=== PATIENT | male | born 1940 | race Caucasian/White ===

== ENCOUNTER 2017-03-01 06:24 | Emergency (ER) | payer OTHER, MEDICARE ==
[~2017-03-01] VITALS: Ht 172.7 cm; Wt 104.8 kg
--- NOTE | 2017-03-01 06:30 | NUR ---
PT BIBA FROM HOME C/O FALL WITH SKIN TEAR. ON ARRIVAL PT UNCONTROLLABLY BLEEDING FROM EMS STRETCHER. PT STRAIGHT TO 12 WHERE THIS RN APPLIED PRESSURE WITH ABD PADS TO PTS MID TO UPPER RIGHT SIDE/ MIDDLE OF BACK. PT HAS MULTIPLE LACS (3 SUTURABLE) AND OTHERS SUPERFICIAL TO BACK. PT HAS MULTIPLE SKIN TEARS/ LACS TO RIGHT ARM. AROUND 0600 PT FELL AT HOME INTO A [employer] CABINET WHEN HE LOST HIS BALANCE. 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 DR JACKSON IN FOR SUTURES TO BACK TO CONTROL BLEEDING.
--- NOTE | 2017-03-01 07:11 | NUR ---
THIS RN ESTABLISHED IV ACCESS IN RAC #[id number]. LABS DRAWN AND SENT TO LAB (SST, LARA, BLUE ,LAV, PINK). RESTRICTED EXT BRACELET APPLIED TO PTS LEFT ARM FOR FISTULAS. BP UNOBTAINABLE AT THIS TIME, THIS RN AND PATENT PARALEGAL JULI MARIN. PT IS DIAPHORETIC AND PALE. DR JACKSON CONTINUES TO SUTURES PTS RIGHT ARM NEAR ELBOW FOR LAC.
--- NOTE | 2017-03-01 07:22 | ED MVC/FALL/TRAUMA COMPLAINT ---
See Addendum History of Present Illness General Chief Complaint: Laceration Procedure Stated Complaint: LACERATION TO BACK AFTER FALL ONTO COFFEE TABLE ON Source: patient, EMS Exam Limitations: no limitations Allergies Coded Allergies: No Known Allergies (03/01/17) Reconcile Medications B Complex & C No.20/Folic Acid (Renal Caps Softgel) 1 MG CAPSULE 1 CAP PO QPM VITAMIN SUPPORT (Reported) Fexofenadine HCl (Sheba Allergy) 180 MG TABLET 1 TAB PO DAILY PRN ALLERGIES (Reported) Furosemide 40 MG TABLET 1 TAB PO SuMoWeFrSa WATER PILL (Reported) Losartan Potassium 100 MG TABLET 1 TAB PO DAILY HEART (Reported) Metoprolol Tartrate 25 MG TABLET 1 TAB PO BID HEART (Reported) Sevelamer Carbonate (Renvela) 800 MG TABLET 1 TAB PO TID UNKNOWN (Reported) Simvastatin (Simvastatin*) (Unknown Strength) TABLET (Unknown Dose) PO QPM CHOLESTEROL (Reported) Warfarin Sodium (Coumadin) 4 MG TABLET 1 TAB PO 1700 BLOOD THINNER (Reported) Triage Note: PT BIBA FROM HOME C/O FALL WITH SKIN TEAR. ON ARRIVAL PT UNCONTROLLABLY BLEEDING FROM EMS STRETCHER. PT STRAIGHT TO 12 WHERE THIS RN APPLIED PRESSURE WITH ABD PADS TO PTS MID TO UPPER RIGHT SIDE/ MIDDLE OF BACK. PT HAS MULTIPLE LACS (3 SUTURABLE) AND OTHERS SUPERFICIAL TO BACK. PT HAS MULTIPLE SKIN TEARS/ LACS TO RIGHT ARM. AROUND 0600 PT FELL AT HOME INTO A [employer] CABINET WHEN HE LOST HIS BALANCE. 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 DR JACKSON IN FOR SUTURES TO BACK TO CONTROL BLEEDING. Triage Nurses Notes Reviewed? yes HPI: Patient presents for evaluation of injury sustained status post fall. Patient was going to the bathroom when he fell over backwards onto a glass coffee table. He presents with multiple lacerations of the back. (RENETTA AVENDAÑO,JEFF Chadwick) Vital Signs & Intake/Output Vital Signs & Intake/Output Vital Signs Date Time Temp Pulse Resp B/P B/P Pulse O2 O2 Flow FiO2 Mean Ox Delivery Rate 03/01 1316 97.2 71 15 100/60 95 Room Air Room Air 03/01 1222 82 15 90/60 100 Room Air Room Air 03/01 1145 98.0 72 15 94/60 100 Room Air Room Air 03/01 1114 71 20 95/56 95 Room Air 03/01 1109 68 20 84/54 98 03/01 1006 66 20 112/60 98 Room Air 03/01 0824 97.2 69 20 135/80 99 Room Air 03/01 0736 69 20 109/57 100 Room Air 03/01 0725 70 18 113/55 96 Room Air ED Intake and Output 03/02 0000 03/01 1200 Intake Total Output Total Balance Patient 231 lb Weight Weight Reported by Patient Measurement Method Past History Travel History Traveled to [place] past 21 day No Medical History Any Pertinent Medical History? see below for history Cardiovascular: hypertension, hyperlipidemia Renal: chronic kidney disease Cancer(s): CARCINOMA ON VOCAL CORDS Psychosocial History What is your primary language Japanese Tobacco Use: Quit >30 days ago ETOH Use: occasional use Family History Hx Contributory? No (RENETTA AVENDAÑO,JEFF Chadwick) Surgical History Surgical History: non-contributory (JEFF DAVIES DO) Review of Systems Review of Systems Constitutional: Reports: no symptoms. Eyes: Reports: no symptoms. Ears, Nose, Throat, Mouth: Reports: no symptoms. Respiratory: Reports: no symptoms. Cardiovascular: Reports: no symptoms. Gastrointestinal/Abdominal: Reports: no symptoms. Genitourinary: Reports: no symptoms. Musculoskeletal: Reports: no symptoms. Skin: Reports: see HPI. Neurological/Psychological: Reports: no symptoms. All Other Systems: Reviewed and Negative (RENETTA AVENDAÑO,JEFF Chadwick) Physical Exam Physical Exam General Appearance: SEE BELOW Comments: Gen.: Well-nourished, well-developed, no acute respiratory distress. Head: Normocephalic, atraumatic, nontender. Eyes: Normal inspection bilaterally, andrea, EOMI Ears: Normal inspection bilaterally Nose: Normal inspection Throat/mouth : Moist mucosa Neck: Supple, full range of motion, no goiter, nontender Heart: Regular rate and rhythm, no murmurs rubs or gallops Lungs: Clear to auscultation bilaterally with normal air entry Chest: Nontender Back: Normal range of motion, nontender Abdomen: Soft, nontender, nondistended, normal bowel sounds Pelvis: Stable and nontender Extremities: Normal range of motion grossly, no tenderness, no cyanosis clubbing or edema Neurologic: Cranial nerves grossly intact, speech is clear Skin: Diaphoresis, multiple superficial and full-thickness skin lacerations of the back and right upper extremity Psychiatric: Calm, cooperative, no apparent delusions or hallucinations Diagram Body: 1) V SHAPED FULL THICKNESS LAC 2) FULL THICKNESS LACERATION 3) FULL THICKNESS LACERATION (RENETTA AVENDAÑO,JEFF Chadwick) Core Measures ACS in differential dx? No Severe Sepsis Present: No Septic Shock Present: No (JEFF DAVIES DO) Progress Differential Diagnosis: CHEST TRAUMA, ABDOMINAL TRAUMA, HEMORRHAGE Comments: 03/01/2017 7:29:24 AM patient's blood pressure and color has improved. I have sutured 3 lacerations on the patient's back and upper arm, the superior back wound for hemostasis and to facilitate imaging. Portable chest x-ray is being done to rule out pneumothorax or free air under the diaphragm. I have a call out to nephrology regarding an IV contrast CAT scan of the chest abdomen and pelvis given my concern for potential penetrating trauma. 03/01/2017 8:05:34 AM patient remains hemodynamically stable. H&H is difficult to interpret as the most recent prior studies from the year 1999. Suspect he has a chronic anemia but I will try to confirm this with his primary care physician. I have reviewed the patient's chest x-ray and see no indication of pneumothorax, hemothorax or free air under the diaphragm. I attempted to perform a FAST exam at the bedside but ultrasound unit is not functional. I have paged radiology. I am also awaiting callback from the chopper gun operator. 03/01/17 9:30am pt case d/w radiologist who agrees with limited abd us to r/o hemoperitoneum. awaiting call from chopper gun operator re: dialysis after contrast ct scan. pt signed out to dr davies. (RENETTA AVENDAÑO,JEFF Chadwick) Plan of Care: Current Medications Sig/Nichol Start time Last Medication Dose Stop Time Status Admin Sevelamer Carbonate 800 MG TID 03/01 1600 AC (Renvela) Departure Departure Condition: Stable Referrals: JESUS AVENDAÑO,JAMAR Chester (PCP/Family) Departure Forms: Customer Survey General Discharge Information (RENETTA AVENDAÑO,JEFF Chadwick) Departure Disposition: STILL A PATIENT Clinical Impression Primary Impression: Gait instability Secondary Impressions: Coagulopathy, Fall, Multiple lacerations Comments 03/01/17 10:44 AM The patient was seen and evaluated by the chopper gun operator in the Emergency Department. We are in agreement that noncontrast CT scan of the chest abdomen and pelvis should be adequate to identify evidence of bleeding looking for hematoma. Admission Note Spoke With: KATIE CELESTIN MD Documentation of Exam: Documentation of any treatments & extenuating circumstances including Concerns Regarding Discharge (functional status, medication knowledge or non-compliance, living conditions, etc.) that warrant an admission rather than observation: [The patient needs admission for serial hemoglobin and hematocrits, renal consultation, case management consultation for evaluation of his home situation in that he had a substantial fall with significant trauma] (JEFF DAVIES DO) Procedures Laceration/Wound Repair Laceration/Wound Repair: Wound Location: back Wound's Depth, Shape: irregular, linear, subcutaneous Wound Length (cm): 17 Wound Explored: clean Irrigated w/ Saline (ccs): 200 Betadine Prep? Yes Anesthesia: 2% lidocaine Volume Anesthetic (ccs): 8 Wound Debrided: minimal Wound Repaired With: sutures, Dermabond Suture Size/Type: 4:0, nylon Number of Sutures: 30 Layer Closure? Yes (superior wound of back) Deep Layer Suture Size/Type: 4:0 Number Deep Layer Sutures: 2 Sterile Dressing Applied: Yes (JEFF JACKSON MD) Critical Care Note Critical Care Note Critical Care Time: 30-74 min (JEFF JACKSON MD) Referrals: JAMAR LEE MD (PCP/Family) Departure Forms: Customer Survey General Discharge Information (JEFF JACKSON MD) Departure Disposition: STILL A PATIENT Clinical Impression Primary Impression: Gait instability Secondary Impressions: Coagulopathy, Fall, Multiple lacerations Comments 03/01/17 10:44 AM The patient was seen and evaluated by the chopper gun operator in the Emergency Department. We are in agreement that noncontrast CT scan of the chest abdomen and pelvis should be adequate to identify evidence of bleeding looking for hematoma. Admission Note Spoke With: KATIE CELESTIN MD Documentation of Exam: Documentation of any treatments & extenuating circumstances including Concerns Regarding Discharge (functional status, medication knowledge or non-compliance, living conditions, etc.) that warrant an admission rather than observation: [The patient needs admission for serial hemoglobin and hematocrits, renal consultation, case management consultation for evaluation of his home situation in that he had a substantial fall with significant trauma] (JEFF DAVIES DO) Procedures Laceration/Wound Repair Laceration/Wound Repair: Wound Location: back Wound's Depth, Shape: irregular, linear, subcutaneous Wound Length (cm): 17 Wound Explored: clean Irrigated w/ Saline (ccs): 200 Betadine Prep? Yes Anesthesia: 2% lidocaine Volume Anesthetic (ccs): 8 Wound Debrided: minimal Wound Repaired With: sutures, Dermabond Suture Size/Type: 4:0, nylon Number of Sutures: 30 Layer Closure? Yes (superior wound of back) Deep Layer Suture Size/Type: 4:0 Number Deep Layer Sutures: 2 Sterile Dressing Applied: Yes (JEFF JACKSON MD) Critical Care Note Critical Care Note Critical Care Time: 30-74 min (JEFF JACKSON MD)
[2017-03-01 07:27] LABS: ABSOLUTE BASOPHIL COUNT 0.1 /CUMM (0.0-0.2); ABSOLUTE EOSINOPHIL COUNT 0.2 /CUMM (0.0-0.7); ABSOLUTE GRANULOCYTE CT 4.7 /CUMM (1.4-6.5); ABSOLUTE LYMPH COUNT 1.3 /CUMM (1.2-3.4); ABSOLUTE MONOCYTE COUNT 0.8 /CUMM (0.10-0.60); BASOPHIL % 0.8 % (0.0-2.0); EOSINOPHIL % 2.6 % (0-5); HEMATOCRIT 29.4 % (42-52); MEAN CORPUSCULAR HGB 34.2 PG (27.0-31.0); MEAN CORPUSCULAR HGB CONC 33.8 G/DL (33.0-37.0); MEAN PLATELET VOLUME 7.8 FL (7.4-10.4); PLATELET COUNT 168 /CUMM (130-400); RBC DISTRIBUTION WIDTH 13.5 % (11.5-14.5); RED BLOOD CELL CT 2.91 /CUMM (4.70-6.10)
--- NOTE | 2017-03-01 07:28 | NUR ---
ASSUMED CARE OF PT WHO IS A&OX2, NAD. PT APPEARS PALE AND DIAPHORETIC, DENIES CP OR SOB AT THIS TIME. PCXR AT BEDSIDE. UNABLE TO GO TO CT UNTIL LABS PROCESSED. DR JACKSON HAS CALL OUT TO SURGERY AND NEPHROLOGY. NS INFUSING. BP NOW 113/55.
--- NOTE | 2017-03-01 07:34 | NUR ---
EKG IN PROCESS BY [facility]
[2017-03-01 07:36] LABS: PT 29.8 SEC (9.4-12.5)
--- NOTE | 2017-03-01 07:47 | NUR ---
CRITICAL TEST RESULTS [id number] LEE WELCH 76 M TESTS AND RESULTS: CREATININE 7.8 Results received and read back by: ROCÍO KAYE Results received date and time: 03/01/17 0747 The following provider was notified of the results, and read the results back: DR JACKSON Notified date and time: 03/01/17 at 0747
--- NOTE | 2017-03-01 08:25 | NUR ---
PT HAS NO COMPLAINTS AT THIS TIME. GIVEN EXTRA BLANKETS AND REPOSITIONED FOR COMFORT. LIGHTS DIMMED. NS INFUSION COMPLETED.
--- NOTE | 2017-03-01 08:41 | NUR ---
FAMILY OF PT AT BEDSIDE AND WOULD LIKE TO SPEAK WITH DR JACKSON. MD JACKSON MADE AWARE
[2017-03-01] MEDS ORDERED: LOSARTAN POTAS100 M1 PO (08:56)
[2017-03-01] MEDS ORDERED: SIMVASTATIN10 M1 PO (08:56)
--- NOTE | 2017-03-01 08:56 | NUR ---
PT AWARE FOR NEED OF URINE SPECIMEN. PT STATES HE MAKES A LITTLE URINE
[2017-03-01] MEDS ORDERED: METOPROLOL TART25 M1 PO (08:57)
[2017-03-01] MEDS ORDERED: COUMADIN4 M1 PO (08:57)
[2017-03-01] MEDS ORDERED: RENAL CAPS SOFTG1 MG PO (08:58)
[2017-03-01] MEDS ORDERED: RENVELA800 M1 PO (08:59)
[2017-03-01] MEDS ORDERED: FUROSEMIDE40 M1 PO (08:59)
[2017-03-01] MEDS ORDERED: ALLEGRA ALLERG180 M1 PO (09:00)
--- NOTE | 2017-03-01 09:02 | NUR ---
DR JACKSON AT BEDSIDE SPEAKING WITH FAMILY
--- NOTE | 2017-03-01 09:32 | ULTRASOUND REPORT ---
EXAMINATION: CHEST PORTABLE. LIMITED ABDOMEN ULTRASOUND. CLINICAL INFORMATION: Fall with laceration to back. COMPARISON: None TECHNIQUE: Chest AP portable 80 degrees. Limited abdomen ultrasound. FINDINGS: CHEST: Both lungs are fairly well-expanded and clear of acute process. Heart size is borderline normal. Vascularity is normal. There are dual pacer electrodes accessed via left subclavian vein with their tips in right atrium and right ventricle. There is a left subclavian arterial stent in place. LIMITED ABDOMEN ULTRASOUND: Limited imaging through 4 quadrants of abdomen reveals no visible free fluid. Limited visualization of liver and spleen are grossly unremarkable. IMPRESSION: No acute process seen in the chest except for borderline cardiomegaly. There is no free fluid in abdomen and pelvis by ultrasound.
--- NOTE | 2017-03-01 10:19 | NUR ---
NEPHROLOGY AT BEDSIDE. PLAN IS TO DIALYZE PT TOMORROW
--- NOTE | 2017-03-01 10:33 | NUR ---
PT TO CT SCAN
--- NOTE | 2017-03-01 10:41 | Cons- Nephrology ---
General Information and HPI Consulting Request Date of Consult: 03/01/17 Requested By: ED doc Reason for Consult: ESRD Source of Information: patient, family Exam Limitations: no limitations History of Present Illness: 76 yr old WM w mult med problems including HTN, cardiomyopathy s/p AICD/pacer, pA fib/sick sinus on warfarin, recent dx laryngeal/throat Ca undergoing radiation, & ESRD on chronic HD admit today after mechanical fall leading to back laceration requiring suture. No syncope or light headedness pre fall. Last HD 2 days ago but w/o uremic sx or SOB. [facility] Hg low 12s w/o JOSELITO. Allergies/Medications Allergies: Coded Allergies: No Known Allergies (03/01/17) Home Med List: B Complex & C No.20/Folic Acid (Renal Caps Softgel) 1 MG CAPSULE 1 CAP PO QPM VITAMIN SUPPORT (Reported) Fexofenadine HCl (Sheba Allergy) 180 MG TABLET 1 TAB PO DAILY PRN ALLERGIES (Reported) Furosemide 40 MG TABLET 1 TAB PO SuMoWeFrSa WATER PILL (Reported) Losartan Potassium 100 MG TABLET 1 TAB PO DAILY HEART (Reported) Metoprolol Tartrate 25 MG TABLET 1 TAB PO BID HEART (Reported) Sevelamer Carbonate (Renvela) 800 MG TABLET 1 TAB PO TID UNKNOWN (Reported) Simvastatin (Simvastatin*) (Unknown Strength) TABLET (Unknown Dose) PO QPM CHOLESTEROL (Reported) Warfarin Sodium (Coumadin) 4 MG TABLET 1 TAB PO 1700 BLOOD THINNER (Reported) Current Medications: Current Medications Sig/Nichol Start time Last Medication Dose Route Stop Time Status Admin Lidocaine/Epinephrine 20 ML ONCE ONE 03/01 730 DC 03/01 ID 03/01 0731 0734 Lidocaine/Epinephrine 0 .STK-MED ONE 03/01 0635 DC .ROUTE Sodium Chloride 500 ML BOLUS ONE 03/01 730 DC 03/01 IV 03/01 0829 0725 Review of Systems Review of Systems Constitutional: Reports: no symptoms. EENTM: Reports: no symptoms. Cardiovascular: Reports: no symptoms. Respiratory: Reports: cough. GI: Reports: no symptoms. Genitourinary: Reports: no symptoms. Musculoskeletal: Reports: back pain. Skin: Denies: see HPI. Neurological/Psychological: Reports: no symptoms. Hematologic/Endocrine: Reports: bleeding. Immunologic/Allergic: Reports: no symptoms. All Other Systems: Reviewed and Negative Past History Travel History Traveled to [place] past 21 day No Medical History EENT: throat/laryngeal Ca - undergoing radiation Cardiovascular: AFIB, hypertension, hyperlipidemia, AICD/pacer Gastrointestinal: colonic polyp Renal: chronic kidney disease, EESRD on HD Cancer(s): CARCINOMA ON VOCAL CORDS Surgical History Surgical History: AVF Family History Relations & Conditions If Any: FH: hypertension Relation not specified Psychosocial History Smoking Status: Former Smoker ETOH Use: occasional use Illicit Drug Use: denies illicit drug use Exam & Diagnostic Data Vital Signs and I&O Vital Signs Date Time Temp Pulse Resp B/P B/P Pulse O2 O2 Flow FiO2 Mean Ox Delivery Rate 03/01 0824 97.2 69 20 135/80 99 Room Air 03/01 0736 69 20 109/57 100 Room Air 03/01 0725 70 18 113/55 96 Room Air 03/01 0714 96.0 74 18 86/48 100 Room Air 03/01 0656 98 Room Air Intake & Output 03/01 1600 03/01 0400 02/28 1600 02/28 0400 02/27 1600 02/27 0400 Intake Total Output Total Balance Patient 231 lb Weight Weight Reported by Patient Measurement Method Physical Exam General Appearance: well developed/nourished, no apparent distress Head: atraumatic, normal appearance Eyes: Bilateral: normal appearance. Ears, Nose, Throat: normal ENT inspection Neck: radiation erythema Respiratory: no respiratory distress, quiet respiration, lungs clear Cardiovascular: regular rate/rhythm, friction rub (none) Gastrointestinal: soft, non-tender, no organomegaly Back: sutured laceration; eccymotic Extremities: no edema, + bruit L arm AVF Neurologic/Psych: no motor/sensory deficits, alert, oriented x 3, mammal keeper II-XII nml as tested Skin: intact, normal color, ecchymosis (back) Results Pertinent Lab Results: Laboratory Tests 03/01 03/01 0722 0716 Chemistry Sodium (137 - 145 mmol/L) 142 Potassium (3.5 - 5.1 mmol/L) 5.1 Chloride (98 - 107 mmol/L) 103 Carbon Dioxide (22 - 30 mmol/L) 25 Anion Gap (5 - 16) 14 BUN (9 - 20 mg/dL) 61 H Creatinine (0.7 - 1.2 mg/dL) 7.8 *H Estimated GFR (>60 ml/min) 7 L BUN/Creatinine Ratio (7 - 25 %) 7.8 Glucose (65 - 99 mg/dL) 112 H Calcium (8.4 - 10.2 mg/dL) 8.9 Total Bilirubin (0.2 - 1.3 mg/dL) 0.7 AST (17 - 59 U/L) 19 ALT (21 - 72 U/L) 32 Alkaline Phosphatase (< 127 U/L) 141 H Troponin I (<0.11 ng/ml) Cancelled 0.05 Total Protein (6.3 - 8.2 g/dL) 5.7 L Albumin (3.5 - 5.0 g/dL) 3.3 L Globulin (1.9 - 4.2 gm/dL) 2.4 Albumin/Globulin Ratio (1.1 - 2.2 %) 1.4 Lipase (23 - 300 U/L) 360 H Coagulation PT (9.4 - 12.5 SEC) 29.8 H INR (0.90 - 1.17) 2.87 H Hematology CBC w Diff NO MAN DIFF REQ WBC (4.8 - 10.8 /CUMM) 7.0 RBC (4.70 - 6.10 /CUMM) 2.91 L Hgb (14.0 - 18.0 G/DL) 9.9 L Hct (42 - 52 %) 29.4 L MCV (80.0 - 94.0 FL) 101.0 H MCH (27.0 - 31.0 PG) 34.2 H RDW (11.5 - 14.5 %) 13.5 Plt Count (130 - 400 /CUMM) 168 MPV (7.4 - 10.4 FL) 7.8 Gran % (42.2 - 75.2 %) 67.0 Lymphocytes % (20.5 - 51.1 %) 18.5 L Monocytes % (1.7 - 9.3 %) 11.1 H Eosinophils % (0 - 5 %) 2.6 Basophils % (0.0 - 2.0 %) 0.8 Absolute Granulocytes (1.4 - 6.5 /CUMM) 4.7 Absolute Lymphocytes (1.2 - 3.4 /CUMM) 1.3 Absolute Monocytes (0.10 - 0.60 /CUMM) 0.8 H Absolute Eosinophils (0.0 - 0.7 /CUMM) 0.2 Absolute Basophils (0.0 - 0.2 /CUMM) 0.1 PUBS MCHC (33.0 - 37.0 G/DL) 33.8 Imaging/Other Studies: Chest AP portable 80 degrees. Limited abdomen ultrasound. FINDINGS: CHEST: Both lungs are fairly well-expanded and clear of acute process. Heart size is borderline normal. Vascularity is normal. There are dual pacer electrodes accessed via left subclavian vein with their tips in right atrium and right ventricle. There is a left subclavian arterial stent in place. LIMITED ABDOMEN ULTRASOUND: Limited imaging through 4 quadrants of abdomen reveals no visible free fluid. Limited visualization of liver and spleen are grossly unremarkable. IMPRESSION: No acute process seen in the chest except for borderline cardiomegaly. There is no free fluid in abdomen and pelvis by ultrasound. Assessment/Plan Assessment/Recommendations Assessment: 1. ESRD: due to presumed HTN nephrosclerosis & ? previous contrast induced ATN per pt. Last HD two days ago but no clear indicatoion today & will hold till tomorrow. 2. Laceration: w significant blood loss on warfarin. No clinical signs of active bleeding post suture or internal injuries by CXR or US; no objection to CT scan but would start w/o IV contrast --> can give isotonic contrast if any suspicious collection found. Recommendations: 1. repeat CBC 2. Type & X 3. 2 gram K & Na diet restriction 4. HD tomorrow 5. EPO w HD
--- NOTE | 2017-03-01 10:45 | History & Physical ---
General Information and HPI MD Statement: I have seen and personally examined LEE WELCH and documented this H&P. The patient is a 76 year old M who presented with a patient stated chief complaint of [status post fall]. Source of Information: patient, family Exam Limitations: no limitations History of Present Illness: The patient is a 76-year-old male with history of end-stage renal disease (on hemodialysis) as well as atrial fibrillation (on Coumadin). He has had issues with vocal quality and cough for several years. He had a biopsy done in May 2016 of some right true vocal cord leukoplakia from which the outside pathology report describes squamous mucosa with marked hyperorthokeratosis and parakeratosis and atypia consistent with low-grade dysplasia. There is no evidence of invasive malignancy. Another CT was ultimately done on 12/09/2016. The right vocal cord abnormality showed inflamed keratinizing dysplastic squamous proliferation with features that were "worrisome for at least squamous cell carcinoma in situ." The left vocal cord specimen showed inflamed keratinizing dysplastic squamous proliferation with "at least moderate dysplasia." made him too risky to take to the operating room for further biopsies. A recommendation was made for definitive radiation therapy, for which the patient is undergoing radiation therapy 5 days a week. His last radiation therapy was yesterday. Today the patient presented to the [facility] after he had a fall on [employer] cabinet and landed up on broken glass. The patient was actively bleeding from the laceration when he came to the emergency department. Sutures were placed in the ER. The patient denied any loss of consciousness dizziness prior to the fall and said that he fall caused he lost his balance. The patient was awake and alert after and during the fall and called 911 for help who brought him the emergency department Allergies/Medications Allergies: Coded Allergies: No Known Allergies (03/01/17) Home Med list B Complex & C No.20/Folic Acid (Renal Caps Softgel) 1 MG CAPSULE 1 CAP PO QPM VITAMIN SUPPORT (Reported) Fexofenadine HCl (Sheba Allergy) 180 MG TABLET 1 TAB PO DAILY PRN ALLERGIES (Reported) Furosemide 40 MG TABLET 1 TAB PO SuMoWeFrSa WATER PILL (Reported) Losartan Potassium 100 MG TABLET 1 TAB PO DAILY HEART (Reported) Metoprolol Tartrate 25 MG TABLET 1 TAB PO BID HEART (Reported) Sevelamer Carbonate (Renvela) 800 MG TABLET 1 TAB PO TID UNKNOWN (Reported) Simvastatin (Simvastatin*) (Unknown Strength) TABLET (Unknown Dose) PO QPM CHOLESTEROL (Reported) Warfarin Sodium (Coumadin) 4 MG TABLET 1 TAB PO 1700 BLOOD THINNER (Reported) Past History Travel History Traveled to [place] past 21 day No Medical History EENT: throat/laryngeal Ca - undergoing radiation Cardiovascular: AFIB, hypertension, hyperlipidemia, AICD/pacer Gastrointestinal: colonic polyp Renal: chronic kidney disease, EESRD on HD Cancer(s): 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 Home Who Do You Live With? self Services at Home: None Primary Language: Romanian Smoking Status: Former Smoker ETOH Use: occasional use Illicit Drug Use: denies illicit drug use Review of Systems Review of Systems Constitutional: Reports: see HPI. EENTM: Reports: see HPI. Exam & Diagnostic Data Last 24 Hrs of Vital Signs/I&O Vital Signs Date Time Temp Pulse Resp B/P B/P Pulse O2 O2 Flow FiO2 Mean Ox Delivery Rate 03/01 1114 71 20 95/56 95 Room Air 03/01 1109 68 20 84/54 98 03/01 1006 66 20 112/60 98 Room Air 03/01 0824 97.2 69 20 135/80 99 Room Air 03/01 0736 69 20 109/57 100 Room Air 03/01 0725 70 18 113/55 96 Room Air 03/01 0714 96.0 74 18 86/48 100 Room Air 03/01 0656 98 Room Air Intake & Output 03/01 1600 03/01 0800 03/01 0000 Intake Total Output Total Balance Patient 231 lb Weight Weight Reported by Patient Measurement Method Physical Exam General Appearance Alert, Oriented X3 Skin No Rashes, No Breakdown Skin Temp/Moisture Exam: Warm/Dry Sepsis Skin Exam (color): Normal for Ethnicity HEENT Atraumatic, PERRLA Neck Supple, No JVD Lymphatic Axillary nl, Cervical nl Abdomen multiple lacerations on the back, no active bleeding Assessment/Plan Assessment: The patient is a 76-year-old male with history of end-stage renal disease (on hemodialysis) as well as atrial fibrillation (on Coumadin). He has had issues with vocal quality and cough for several years. The patient presented to [facility] status post mechanical fall on the [place] table ended up having lacerations on the back Vitals at the time of admission showed Blood pressure of 98/56, respiration rate of 20, heart rate 66, respirations saturation of 98% on room air Hemoglobin of 9.9, hematocrit of 29.4, normal WBC INR of 2.87, creatinine of 7.8 , BUS and of 61, potassium of 5.1 Glucose of 112 EKG shows normal sinus rhythm Imaging: Extensive CT head and spine were done to rule out any penetrating lacerations which were negative Assessment 1. Multiple lacerations on the back status post mechanical fall with active bleeding 2. History of atrial fibrillation on Coumadin therapy 3. End-stage renal disease on hemodialysis Wednesdays and Fridays 4. 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 Patient: Hemoglobin should be above 8 Regarding the patient's ongoing radiation therapy I spoke to Dr. Chavo Villanueva, he recommended that the patient can be safely monitored in the hospital one day off the radiation therapy but he would try to arrange for the patient to get radiation therapy from tomorrow at [facility] under the care of Dr. Rafi Collins. If it's unsuccessful patient needs to be transported to [facility] for continuity of radiation therapy while he is being admitted Patient would have hemodialysis in the morning Avoid blood transfusion in the absence of any dialysis Hold blood pressure medications as the patient blood pressure is low Appreciate nephrology consult Patient is full code DVT prophylaxis with subcutaneous heparin on the time Addendum to to hospital cpurse: After speaking to the radiation oncologist who recommended that the patient should be transported and transferred from the emergency department to [facility] emergency department, and due to ongoing radiation therapy and trauma to the chest. ED staff and attending Dr. Lundy made arrangements for transport.from the emergency department [facility]OSPITAL. This was relayed to Dr. Chavo Weiss. As Ranked By This Provider Problem List: 1. Gait instability 2. Fall 3. Multiple lacerations Core Measures/Miscellaneous Acute Coronary Syndrome ACS Diagnosis: No Cerebrovascular Accident CVA/TIA Diagnosis: No Congestive Heart Failure CHF Diagnosis: No Venous Thromboembolism VTE Risk Factors: Acute medical illness, Age > 40 No [facility] VTE prophylaxis d/t: VTE low risk, No contraindications No VTE Pharm Prophylaxis d/t: VTE low risk, No contraindications VTE Diagnosis: No VTE Type: NONE VTE Confirmed by (Test): NONE Severe Sepsis Severe Sepsis Present: No Septic Shock Septic Shock Present: No Miscellaneous Documentation Attending Case Discussed With: VÍCTOR SYED MD Primary Care Physician: JAMAR LEE MD Patient sees these Specialists none Level of Patient Care: General Medicine
--- NOTE | 2017-03-01 10:49 | NUR ---
PT RETURNS FROM CT SCAN
--- NOTE | 2017-03-01 11:16 | NUR ---
REPORT TO TERESA GONZALEZ
--- NOTE | 2017-03-01 11:19 | NUR ---
CARE ASSUMED BY THIS RN NOW. DR. DAVIES AT BEDSIDE TO ASSESS REMAINING LAC'S.
--- NOTE | 2017-03-01 11:24 | CT SCAN REPORT ---
EXAMINATION: CT HEAD W/O IV CONTRAST CT CERVICAL SPINE W/O IV CONTRAST CLINICAL INFORMATION: 76-year-old male with history of fall onto glass table. Multiple back lacerations. COMPARISON: None TECHNIQUE: Head - Contiguous axial imaging of the head was performed from the skull base to the vertex without the administration of intravenous contrast, and axial images are reconstructed at 0.625 mm , 2.5 mm and 5 mm slice thickness. Coronal reformatted images were generated. Cervical spine - A volumetric, helical CT acquisition of the cervical spine was obtained without contrast; in addition to the standard set of axial images, multiplanar reformatted images were provided in the coronal and sagittal imaging planes. DLP: 1047 mGy-cm (total) FINDINGS: HEAD: Atherosclerotic calcification of carotid siphons and vertebral arteries. No acute intracranial hemorrhage, focal extra-axial fluid collection, mass effect or midline shift. Moderate atrophy of cerebral hemispheres associated with enlargement of the ventricles and sulci. Moderate patchy hypoattenuation of supratentorial white matter is compatible with chronic microvascular ischemic change. The bee-white matter differentiation is maintained. There is encephalomalacia from old infarction of the inferior right cerebellar hemisphere. Small mucous retention cyst of the left maxillary antrum. Otherwise, paranasal sinuses, orbits, globes and temporomandibular joints are unremarkable. The inferior right and left mastoid air cells are opacified. The middle ear cavities are clear. There is no evidence of mastoid fracture. CERVICAL SPINE: There is normal curvature of the cervical spine. The craniocervical junction is intact. The occipital condyles, atlas, axis and atlantoaxial articulation are intact. The vertebral body heights and alignment are maintained with exception of minimal degenerative anterolisthesis at C3-C4 and C5-C6. No acute fractures in the anterior or posterior elements. There is no prevertebral soft tissue swelling. There is multilevel facet osteoarthritis, including severe right-sided facet osteoarthritis of C3-C4 with osteophytes producing [id number] right foraminal stenosis at this level. At C6-C7, there is moderate loss of disc space, endplate irregularity and traction osteophyte formation. The C6-C7 uncovertebral joint hypertrophy causes moderate right foraminal stenosis. No radiopaque foreign bodies or fluid collections in the visualized posterior neck. Chest findings are dictated separately. IMPRESSION: 1. No acute intracranial pathology. 2. 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 Moderate cerebral atrophy and moderate microvascular ischemic changes of the supratentorial white matter. 3. Bilateral mastoid effusions (probably incidental findings) without mastoid fracture. 4. No acute fractures within the degenerated cervical spine.
--- NOTE | 2017-03-01 11:25 | NUR ---
DR. SYED AT BEDSIDE. PT MEDICATED WITH TETANUS PER EMAR. TOLERATED WELL.
--- NOTE | 2017-03-01 11:46 | CT SCAN REPORT ---
EXAMINATION: CT CHEST WITHOUT IV CONTRAST CT ABDOMEN AND PELVIS WITHOUT IV CONTRAST CLINICAL INFORMATION: 76-year-old male status post fall. Lacerations to the back. Evaluate for vascular injury. COMPARISON: None TECHNIQUE: Noncontrast, multidetector CT imaging examination of the chest, abdomen and pelvis was performed. Axial images are displayed at 5 mm and 0.625 mm slice thickness. Coronal and sagittal reformatted images were generated at the technologist's workstation and submitted for review. DLP: 883 mGy-cm FINDINGS: CHEST - LUNGS and PLEURA: Trachea and central airways are widely patent. No evidence of pulmonary laceration, consolidation, pleural effusion or pneumothorax. MEDIASTINUM: Severe atherosclerotic disease of coronary arteries and mild cardiomegaly. The right atrial and ventricular pacing leads are in satisfactory position. No pericardial effusion. Atherosclerotic calcification of the thoracic aorta and its branches without aneurysm. No mediastinal hematoma. Esophagus and visualized portion of the thyroid gland are unremarkable. LYMPHATICS: No pathologic sized axillary, hilar or mediastinal lymph nodes. CHEST WALL/BONES: Radiopaque foreign bodies projected between the right posterior eighth and ninth ribs, and one of these abuts the pleura (image 36, series 2). There is a 2.5 x 4 cm heterogeneously hyperdense hematoma involving the right latissimus dorsi muscle of the inferior, posterior right chest wall. A few foci of posttraumatic soft tissue gas are seen in this region. Thoracic vertebra have normal height and alignment. Sternum is normal. Acute, nondisplaced fracture of the right anterolateral sixth rib. There is an old, healed right lateral sixth rib fracture, as well. There is an acute, minimally displaced fracture of right lateral seventh rib. ABDOMEN AND PELVIS - HEPATOBILIARY: Liver has normal size, contour and attenuation. No radiopaque gallstones. No gallbladder wall edema or pericholecystic inflammatory change. PANCREAS: No acute findings in the atrophied pancreas. No pancreatic ductal dilatation or peripancreatic edema. SPLEEN: Unremarkable. ADRENAL GLANDS: Unremarkable. KIDNEYS, URETERS, BLADDER: Severe bilateral renal cortical atrophy and multiple bilateral renal cysts. Largest simple appearing cyst of the right kidney is 4.5 cm maximum dimension. 0.8 cm exophytic lesion at the right upper pole has a density of 40 HU and could represent a hyperdense cyst or small solid mass. 1.8 x 2.4 cm hyperdense cyst of the interpolar right kidney has a density of 85 HU. 1 cm exophytic lesion at the lower pole of the right kidney has a density of 55 HU. Another cyst extending from the inferior aspect of the lower pole the right kidney has calcification along its inferior wall. A 1.3 cm lesion at the upper pole of the left kidney has a density of 42 HU and a 1.7 cm lesion at the left lower pole has a density of 30 HU. These could represent hyperdense cysts or solid masses. No nephrolithiasis or hydronephrosis. Urinary bladder is underdistended. GASTROINTESTINAL TRACT: Stomach is unremarkable. Bowel loops are normal in size. There is a cecal diverticulum. No hemoperitoneum or pneumoperitoneum. ABDOMINAL WALL: Small fat-containing umbilical hernia measures 2.4 cm wide. VASCULAR: Atherosclerotic calcification of the abdominal aorta and branch vessels. Infrarenal abdominal aorta measures up to 2.5 cm AP diameter. No retroperitoneal hematoma. The dilated right common iliac artery is 1.9 cm diameter. LYMPH NODES: No pathologic sized lymph nodes within the abdomen or pelvis. PELVIC VISCERA: Prostate gland is unremarkable. No pelvic free fluid. OSSEOUS STRUCTURES: No acute findings in the degenerated spine. No lumbar spine fracture or subluxation. There is bridging enthesophyte formation of the anterior left sacral iliac joint and osteophyte formation of the anterior right sacroiliac joint. No pelvic bone fracture. Mild osteoarthrosis of the hips. IMPRESSION: 1. Acute fractures of right sixth and seventh ribs without pulmonary contusion, hemothorax or pleural effusion. 2. Radiopaque foreign bodies project between the right posterior eighth and ninth ribs and there is a heterogeneous hyperdense hematoma involving the right latissimus dorsi muscle of the right posterior back. 3. Severe atherosclerotic disease of coronary arteries and cardiomegaly without pulmonary edema. 4. No acute findings in the abdomen or pelvis. 5. Severe atrophy of kidneys and multiple bilateral renal cysts. There are hyperdense renal cysts, as well. Also, there are hyperdense cortical lesions that are probably proteinaceous cysts but are not well characterized on this exam. Solid renal masses would be difficult to exclude.
[2017-03-01 11:55] LABS: ABSOLUTE BASOPHIL COUNT 0 /CUMM (0.0-0.2); ABSOLUTE EOSINOPHIL COUNT 0 /CUMM (0.0-0.7); ABSOLUTE GRANULOCYTE CT 5.8 /CUMM (1.4-6.5); ABSOLUTE LYMPH COUNT 0.6 /CUMM (1.2-3.4); ABSOLUTE MONOCYTE COUNT 0.6 /CUMM (0.10-0.60); BASOPHIL % 0.3 % (0.0-2.0); EOSINOPHIL % 0.5 % (0-5); HEMATOCRIT 28.9 % (42-52); MEAN CORPUSCULAR HGB CONC 33.8 G/DL (33.0-37.0); MEAN CORPUSCULAR VOLUME 100.7 FL (80.0-94.0); MEAN PLATELET VOLUME 8.2 FL (7.4-10.4); PLATELET COUNT 147 /CUMM (130-400); RED BLOOD CELL CT 2.87 /CUMM (4.70-6.10); WHITE BLOOD CELL COUNT 7.1 /CUMM (4.8-10.8)
--- NOTE | 2017-03-01 12:19 | NUR ---
bed 224-2
--- NOTE | 2017-03-01 12:23 | NUR ---
SERAFIN PAGED ABOUT BP.
--- NOTE | 2017-03-01 12:55 | NUR ---
URINE TRIO SENT TO LAB NOW.
[2017-03-01 13:16] VITALS: BP 100/60
--- NOTE | 2017-03-01 13:54 | NUR ---
REPORT GIVEN TO [facility].
== END 2017-03-01 13:55 | disposition short-term general hospital (02) ==
LOC: ERH 06:24 → ERHI 10:11 → CANRESERV 12:12 → ENRESERV 12:12 → ERHI 13:55 → CMPBEDREQ 15:32 → ERHI 19:23
PROVIDERS: Emergency Medicine
DX: S21.219A Laceration without foreign body of unspecified back wall of thorax without penetration into thoracic cavity, initial encounter (principal); S22.49XA Multiple fractures of ribs, unspecified side, initial encounter for closed fracture; S20.219A Contusion of unspecified front wall of thorax, initial encounter; R26.9 Unspecified abnormalities of gait and mobility; D68.9 Coagulation defect, unspecified; Z79.01 Long term (current) use of anticoagulants; W19.XXXA Unspecified fall, initial encounter; I12.9 Hypertensive chronic kidney disease with stage 1 through stage 4 chronic kidney disease, or unspecified chronic kidney disease; N18.9 Chronic kidney disease, unspecified
CPT/HCPCS: ERO; 74176; 81001; 90471; 90714; 93005; 93010; 96360; J7040